=== PATIENT | male | born 1995 | race Caucasian/White ===

== ENCOUNTER 2016-04-17 17:10 | Emergency (ER) | payer SELFPAY ==
[2016-04-17] MEDS ORDERED: HYDROmorphONE/DILAUDID 1 MG/ML SYR ONE (17:15)
--- NOTE | 2016-04-17 17:15 | EDPHY ---
H & P Time Seen by Provider: 04/17/16 17:11 HPI/ROS: CHIEF COMPLAINT: Right forearm injury HISTORY OF PRESENT ILLNESS: 20-year-old male arrives by ambulance complaining of acute right forearm pain. He was playing [employer] for [employer], in [place] for a tournament, fell onto his outstretched right arm sustaining immediate pain, splinted by athletic training staff. No paresthesia. No sensory motor deficit. No proximal distal pain or injury. Right-hand dominant. No head injury. PHYSICAL EXAM (Prior to examination, patient consented to physical exam, hands were washed and my usual and customary physical exam procedures followed) 1) GENERAL: Well-developed, well-nourished, alert and oriented. Appears uncomfortable 2) HEAD: Normocephalic 3) HEENT: Pupils equal, round, reactive to light bilaterally. 4) LUNGS: Breathing comfortably. 5) MUSCULOSKELETAL: alexx splint in place, removed revealing mid shaft tenderness , deformity, intact skin, no tenting. Soft compartments. Normal coloration. 6) SKIN: there is an abrasion to the right elbow. Otherwise no puncture wound. 7) VASCULAR: pulses and cap refill present are brisk 8) NEUROLOGIC: Radial, ulnar, median nerve function intact with no deficits appreciated on exam DIFFERENTIAL DIAGNOSIS: in no particular order including but not limited to fracture, sprain, compartment syndrome Right Forearm, Two Views 5:27 PM Indication: Soccer injury. Pain. Findings: An acute complete transverse fracture coursing through the distal diaphyseal shaft of the radius has minimal apex dorsal angulation. The distal fracture fragment is translated radially 1 or 2 mm relative to the proximal fracture fragment. Incomplete nondisplaced greenstick fracture courses through the distal diaphyseal shaft of the ulna (best demonstrated on the AP view). No elbow effusion. The wrist and elbow are anatomically aligned. Impression 1. Acute minimally angulated and displaced complete distal radial diaphyseal fracture. 2. Incomplete greenstick fracture distal ulna. Dictated By: Ke Seth MD Images reviewed by myself Procedure: Splint Orthoglass sugar-tong splint and sling was applied by ER dialysis equipment technician. After application of the splint I returned and re-examined the patient. The splint was adequately immobilizing the joint and distal to the splint the patient's circulation and sensation were intact. Patient shows no signs of compartment syndrome. Was given orthopedic precautions. (Sandra Moran) Constitutional: Initial Vital Signs Temperature (C) 36.9 C 04/17/16 17:17 Heart Rate 110 H 04/17/16 17:17 Respiratory Rate 22 H 04/17/16 17:17 Blood Pressure 150/99 H 04/17/16 17:17 O2 Sat (%) 99 04/17/16 17:17 O2 Delivery Mode Room Air Allergies/Adverse Reactions: No Known Allergies Allergy (Unverified 04/17/16 17:17) Home Medications: Medication Instructions Recorded oxyCODONE/APAP 5/325 [Percocet 1 tab PO Q6 #10 tab 04/17/16 5/325] MDM/Departure - MDM Medications Given: Discontinued Medications Hydromorphone HCl (Dilaudid) 1 mg IVP EDNOW ONE Stop: 04/17/16 17:29 Last Admin: 04/17/16 17:37 Dose: 1 mg Ibuprofen (Motrin) 600 mg PO EDNOW ONE Stop: 04/17/16 18:12 Last Admin: 04/17/16 18:12 Dose: 600 mg Lorazepam (Ativan Injection) 1 mg IVP ONCE ONE Stop: 04/17/16 17:48 Last Admin: 04/17/16 17:48 Dose: 1 mg Oxycodone/Acetaminophen (Percocet 5/325) 1 tab PO EDNOW ONE Stop: 04/17/16 18:12 Last Admin: 04/17/16 18:12 Dose: 1 tab ED Course/Re-evaluation: Patient was re-evaluated with serial exams of myself and Dr. Petros Obando. He has soft compartments, is neurovascularly intact. We discussed the risk of compartment syndrome and strict orthopedic precautions and instructions provided. He has been informed that he will necessitate orthopedic follow-up and probable surgical intervention. He is visiting from [place] and prefers to have any further orthopedic follow-up intervention performed there. I think this is reasonable decision. He has been given copies of his x-rays, analgesia prescription, usual customary orthopedic precautions and instructions (Sandra Moran) PHYSICIAN DOCUMENTATION: The patient was evaluated and managed by the Physician Knotting Machine Operator and myself. I have reviewed the chart and agree with the findings and plan of care as documented. In addition, I examined the patient myself at 1740. History confirmed as injury with playing rugby. Physical findings as follows: Normal motor sensory and vascular in the right hand. I reviewed the x-rays with the patient personally on the computer system. Patient states he would prefer to have surgical consultation back coming [place] or in [place] where his parents live as he is going back there at the middle of next week. I am the secondary supervising physician. (Petros Obando) - Depart Disposition: Home, Routine, Self-Care Clinical Impression: Fracture of right radius and ulna Qualifiers: Encounter type: initial encounter Fracture type: closed Qualified Code(s): S52.91XA - Unspecified fracture of right forearm, initial encounter for closed fracture Condition: Good Instructions: Arm Fracture in Adults (ED) Additional Instructions: Return to the ER immediately if you experience discoloration, have worsening pain, numbness, tingling, or any other symptoms that concern you. If you received x-rays in the emergency department today, be advised, that ligamentous , tendon, muscular, and other non-bony injury cannot be fully ruled out. Try to keep your affected extremity elevated above the level of your chest, and keep cold packs on the affected area, for the next 48 hours. Prescriptions: oxyCODONE/APAP 5/325 [Percocet 5/325] 1 tab PO Q6 #10 tab Referrals: Ke Caba MD [Medical Doctor] - 2-3 days, call for appt.
[2016-04-17 17:28] VITALS: TEMP 98.4
[2016-04-17] MEDS ORDERED: HYDROmorphONE/DILAUDID 1 MG/ML SYR IVP ONE (17:28)
[2016-04-17] MEDS ORDERED: LORazepam 2 MG/ML INJ ONE (17:42)
[2016-04-17] MEDS ORDERED: LORazepam 2 MG/ML INJ IVP ONE (17:47)
[2016-04-17] MEDS ORDERED: OXYCODONE/APAP 5/325 TAB ONE (17:57)
[2016-04-17] MEDS ORDERED: IBUPROFEN 600 MG TAB PO ONE ×2 (17:58→18:11)
[2016-04-17] MEDS ORDERED: OXYCODONE/APAP 5/325 TAB PO ONE (18:11)
[2016-04-17 18:14] VITALS: BP 140/94; PULSE 98; RESP 16; O2SAT 96
== END 2016-04-17 18:12 | disposition home or self-care (01) ==
DX: S59.201A Unspecified physeal fracture of lower end of radius, right arm, initial encounter for closed fracture (principal); W19.XXXA Unspecified fall, initial encounter; Y92.214 College as the place of occurrence of the external cause; Y99.8 Other external cause status; Y93.63 Activity, rugby
CPT/HCPCS: 96374; A4565; J1170